=== PATIENT | male | born 1980 | race Two or more races ===

== ENCOUNTER 2016-08-11 12:22 | Emergency (ER) | payer OTHER ==
[~2016-08-11] VITALS: Ht 160 cm; Wt 104.3 kg
[2016-08-11 12:39] VITALS: BP 172/109
[2016-08-11] MEDS ORDERED: KETOROLAC TROMETH 60MG/2ML VIAL IM ONE (14:15)
== END 2016-08-11 14:28 | disposition home or self-care (01) ==
LOC: EDBD 12:22 → ER 12:22
DX: M54.41 Lumbago with sciatica, right side (principal); E66.9 Obesity, unspecified; Z68.41 Body mass index [BMI] 40.0-44.9, adult
CPT/HCPCS: 73502; 96372; 99284; J1885